=== PATIENT | female | born 1980 ===

== ENCOUNTER 2018-08-30 22:50 | Emergency (ER) | payer BC ==
[2018-08-30 23:22] VITALS: BP 131/91
[2018-08-31] MEDS ORDERED: BENADRYL PO ONE (05:07)
[2018-08-31] MEDS ORDERED: TORADOL IM ONE (05:07)
[2018-08-31] MEDS ORDERED: REGLAN PO ONE (05:07)
--- NOTE | 2018-08-31 05:14 | Emergency Department Report ---
ED Headache HPI - General Chief Complaint: Headache Stated Complaint: HEADACHE/HIGH BP Time Seen by Provider: 08/31/18 04:27 - History of Present Illness Initial Comments: Pt is a 38 yo female who presents to the ED with c/o a frontal CLEMENS that began at 6 PM. She describes the pain as a throbbing. She denies any vision changes, numbness, weakness, N/V, photophobia, or any other sx. She has not tried any medication to relieve her CLEMENS. She denies any PMHx. Allergies/Adverse Reactions: Allergies No Known Allergies Allergy (Verified 08/30/18 23:21) ED Review of Systems ROS: Stated complaint: HEADACHE/HIGH BP Other details as noted in HPI Comment: All other systems reviewed and negative ED Past Medical Hx - Past Medical History Previous Medical History?: No - Surgical History Past Surgical History?: No - Social History Smoking Status: Never Smoker Substance Use Type: Alcohol ED Physical Exam - General Limitations: No Limitations General appearance: alert, in no apparent distress - Head Head exam: Present: atraumatic, normocephalic - Eye Eye exam: Present: normal appearance, PERRL, EOMI - ENT ENT exam: Present: mucous membranes moist - Neck Neck exam: Present: full ROM. Absent: meningismus - Respiratory Respiratory exam: Present: normal lung sounds bilaterally. Absent: respiratory distress, wheezes, rales, rhonchi, stridor, chest wall tenderness, accessory muscle use, decreased breath sounds, prolonged expiratory - Cardiovascular Cardiovascular Exam: Present: regular rate, normal rhythm, normal heart sounds. Absent: systolic murmur, diastolic murmur, rubs, gallop - Neurological Exam Neurological exam: Present: alert, oriented X3, CN II-XII intact, normal gait, other (equal tuckpointer strength, normal heel to rodriguez, normal finger to nose, 5/5 strength in the BUE/BLE, sensation intact, no neuro deficit). Absent: motor sensory deficit - Psychiatric Psychiatric exam: Present: normal affect, normal mood - Skin Skin exam: Present: warm, dry, intact ED Course Vital Signs 08/30/18 08/31/18 23:20 06:52 Temperature 99.6 F Pulse Rate 108 H 99 H Respiratory 18 15 Rate Blood Pressure 131/91 O2 Sat by Pulse 100 99 Oximetry - Reevaluation(s) Reevaluation #1: 08/31/18 06:34 pt sleeping comfortably on reexamination, woke pt, and headache had improved ED Medical Decision Making - Lab Data Vital Signs 08/30/18 08/31/18 23:20 06:52 Temperature 99.6 F Pulse Rate 108 H 99 H Respiratory 18 15 Rate Blood Pressure 131/91 O2 Sat by Pulse 100 99 Oximetry - Medical Decision Making Pt is a 38 yo female who presents to the ED with c/o a frontal CLEMENS that began at 6 PM. She describes the pain as a throbbing. She denies any vision changes, numbness, weakness, N/V, photophobia, or any other sx. She has not tried any medication to relieve her CLEMENS. She denies any PMHx. Blood pressure is normal in the emergency department. no neuro deficit on examination. CLEMENS resolved s/p m edications. Advised pt to follow up with PCP in the next 2-3 days. Return to the emergency room for any new or worsening symptoms. - Differential Diagnosis headache, migraine, sinusitis Critical care attestation.: If time is entered above; I have spent that time in minutes in the direct care of this critically ill patient, excluding procedure time. ED Disposition Clinical Impression: Headache Qualifiers: Headache type: unspecified Headache chronicity pattern: acute headache Intractability: not intractable Qualified Code(s): R51 - Headache Disposition: -01 TO HOME OR SELFCARE Is pt being admited?: No Does the pt Need Aspirin: No Condition: Stable Instructions: Acute Headache (ED) Additional Instructions: Please follow up with a primary care doctor in the next 2-3 days. Alternate tylenol and ibuprofen as needed. Return to the emergency room for any new or worsening symptoms. Referrals: ROYA PORTER MD [Primary Care Provider] - 2-3 Days Time of Disposition: 06:35 Print Language: KHMER
== END 2018-08-31 06:52 | disposition home or self-care (01) ==
LOC: ED 22:50
DX: R51 Headache (principal)
CPT/HCPCS: 96372; 99282; J1885